=== PATIENT | male | born 1960 | race African-American/Black ===

== ENCOUNTER 2019-08-23 20:26 | Emergency (ER) | payer SELFPAY ==
[~2019-08-23] VITALS: Ht 185.4 cm; Wt 113.4 kg
[2019-08-23 21:09] VITALS: BP 113/78
[2019-08-23 21:09] LABS: BASOPHILS # (AUTO) 0.1 /CMM (0.0-0.2); EOSINOPHILS % (AUTO) 1.8 % (0.0-6.0); HEMATOCRIT 45 % (39-51); HEMOGLOBIN 14.8 g/dL (13.5-17.5); LYMPHOCYTES # (AUTO) 2.1 /CMM (0.8-4.8); LYMPHOCYTES % (AUTO) 27.2 % (20.0-44.0); MEAN CORPUSCULAR HGB CONC 33 g/dl (31.0-36.0); MEAN CORPUSCULAR VOLUME 92 fL (80-96); MONOCYTES % (AUTO) 12.6 % (2.0-12.0); NEUTROPHILS # (AUTO) 4.4 /CMM (1.8-8.9); NEUTROPHILS % (AUTO) 57.4 % (43.0-81.0); PLATELET COUNT (AUTO) 213 /CMM (150-450); RED BLOOD CELL COUNT(AUTO) 4.93 MIL/uL (4.5-6.0); WHITE BLOOD COUNT (AUTO) 7.6 K/uL (4.3-11.0)
--- NOTE | 2019-08-23 21:10 | NUR ---
[facility]. TO ER BED 14. AAOX4 BUT DROWSY. NO RESP DISTRESS, BREATHING EVEN AND UNLABORED UPON PRESENTATION. PT FOUND UNCONSCIOUS, POSSIBLE FOR DRUG OVERDOSE. PT PT, HE SNORTED WHAT HE TAUGHT TO BE COCAINE AND NEST THING HE KNOWS IS HE IS BEING BROUGHT TO THE HOSPITAL. PT WAS GIVEN NARCAN 4MG AND AWAKEN THE PT. MD WAS AT BEDSIDE FOR EVAL. IV LINE OBTAINED ON R AC 18G. BLOOD DRAWN AND GIVEN TO NEUROLOGIST AT BEDSIDE. WILL CONTINUE TO MONITOR PT.
[2019-08-23 21:16] LABS: CALCIUM, SERUM 8.8 mg/dL (8.5-10.1); CREATININE 1.7 mg/dL (0.6-1.3); POTASSIUM 4.1 mmol/L (3.5-5.1)
--- NOTE | 2019-08-23 22:08 | NUR ---
PT SLEEPING IN [place]. NO SIGNS OF DISTRESS NOTED. PT VITAL SIGNS STABLE. BREATHS EQUAL AND UNLABORED. WILL CONT TO MONITOR PT.
--- NOTE | 2019-08-24 04:25 | NUR ---
PT IN BED SLEEPING. NO DISTRESS NOTED
--- NOTE | 2019-08-24 05:55 | NUR ---
IV removed. Catheter intact and site benign. Pressure and 4x4 applied to site. No bleeding noted.
--- NOTE | 2019-08-24 06:02 | NUR ---
PT OK TO BE DISCHARGED PER DR CESPEDES. Patient is awake and alert to self, day, and place.Patient given written and verbal discharge instructions. Patient verbalizes understanding of instructions. Patient is ambulatory with steady gait. Refuses offer of [facility] placement. Patient given list of available shelters in surrounding area.
== END 2019-08-24 06:03 | disposition home or self-care (01) ==
LOC: ER 20:29
DX: T40.691A Poisoning by other narcotics, accidental (unintentional), initial encounter (principal); I10 Essential (primary) hypertension; E78.00 Pure hypercholesterolemia, unspecified; F10.10 Alcohol abuse, uncomplicated; F17.200 Nicotine dependence, unspecified, uncomplicated; Y90.9 Presence of alcohol in blood, level not specified; Y92.89 Other specified places as the place of occurrence of the external cause
CPT/HCPCS: 36415; 80048-TC; 85025-TC

== ENCOUNTER 2019-08-24 09:05 | Emergency (ER) | payer SELFPAY ==
[~2019-08-24] VITALS: Ht 188 cm; Wt 117.9 kg
--- NOTE | 2019-08-24 09:15 | NUR ---
PT BIB SELD C/O ABDOMINAL PAIN STARTED LAST NIGHT, PT IS AAOX4, NOT IN RESPIRATORY DISTRESS, HOOKED TO DIRECTOR OF SCIENCE, KEPT RESTED AND COMFORTABLE, WILL CONTINUE TO MONITOR.
[2019-08-24] MEDS ORDERED: IV NS 0.9% 1,000 ML BAG IV ONE (09:30)
--- NOTE | 2019-08-24 09:30 | NUR ---
SEEN AND EXAMINED BY DR. KIM.
--- NOTE | 2019-08-24 09:40 | NUR ---
URINE SPECIMEN COLLECTED AND SENT TO LAB.
--- NOTE | 2019-08-24 09:45 | NUR ---
IV LINE ESTABLISHED, BLOOD DRAWN AND SENT TO LAB.
[2019-08-24 09:51] LABS: APPEARANCE,URINE Clear (CLEAR); BILIRUBIN,URINE Negative (NEGATIVE); BLOOD, URINE Negative Ery/uL (NEGATIVE); COLOR,URINE Yellow (YELLOW); KETONES,URINE Negative (NEGATIVE); LEUKOCYTE ESTERASE ,URINE Negative (NEGATIVE); NITRITE, URINE Negative (NEGATIVE); PH,URINE 5.5 (5.0-8.0); PROTEIN,URINE Trace mg/dl (NEGATIVE); UGLUCOSE Negative (NEGATIVE); UROBILINOGEN,URINE 0.2 EU/dL (0.2)
[2019-08-24 09:56] LABS: BASOPHILS # (AUTO) 0.1 /CMM (0.0-0.2); BASOPHILS % (AUTO) 0.6 % (0.0-2.0); EOSINOPHILS % (AUTO) 1.1 % (0.0-6.0); HEMATOCRIT 47 % (39-51); HEMOGLOBIN 15.7 g/dL (13.5-17.5); LYMPHOCYTES # (AUTO) 2.3 /CMM (0.8-4.8); LYMPHOCYTES % (AUTO) 24.7 % (20.0-44.0); MEAN CORPUSCULAR HGB CONC 33 g/dl (31.0-36.0); MEAN CORPUSCULAR VOLUME 92 fL (80-96); MONOCYTES # (AUTO) 1.2 /CMM (0.1-1.30); MONOCYTES % (AUTO) 12.9 % (2.0-12.0); NEUTROPHILS # (AUTO) 5.7 /CMM (1.8-8.9); NEUTROPHILS % (AUTO) 60.7 % (43.0-81.0); PLATELET COUNT (AUTO) 224 /CMM (150-450); RED BLOOD CELL COUNT(AUTO) 5.17 MIL/uL (4.5-6.0); WHITE BLOOD COUNT (AUTO) 9.3 K/uL (4.3-11.0)
[2019-08-24 10:00] LABS: CALCIUM, SERUM 9.2 mg/dL (8.5-10.1); CREATININE 1.3 mg/dL (0.6-1.3); POTASSIUM 4.6 mmol/L (3.5-5.1)
[2019-08-24 10:03] LABS: ALCOHOL, BLOOD < 3 mg/dL (0-0); SALICYLATE 3.5 mg/dL (2.8-20.0)
[2019-08-24 10:04] LABS: ACETAMINOPHEN 0 ug/ml (10-30)
[2019-08-24 10:05] LABS: BILIRUBIN,DIRECT 0.1 mg/dL (0.0-0.2); BILIRUBIN,TOTAL 0.3 mg/dL (0.2-1.0); TOTAL PROTEIN, SERUM 8.5 g/dL (6.4-8.2)
--- NOTE | 2019-08-24 11:22 | NUR ---
PT IS WHEELED TO CT SCAN VIA [facility].
[2019-08-24 12:29] VITALS: BP 128/84
--- NOTE | 2019-08-24 12:29 | NUR ---
IV removed. Catheter intact and site benign. Pressure and 4x4 applied to site. No bleeding noted. Patient discharged to home in stable condition. Written and verbal after care instructions given. Patient verbalizes understanding of instruction.
== END 2019-08-24 12:30 | disposition home or self-care (01) ==
LOC: ER 09:05
DX: R10.9 Unspecified abdominal pain (principal); R11.0 Nausea; I10 Essential (primary) hypertension; F10.10 Alcohol abuse, uncomplicated; F17.200 Nicotine dependence, unspecified, uncomplicated; Y90.0 Blood alcohol level of less than 20 mg/100 ml
CPT/HCPCS: 36415; 74018; 74176; 80048; 80076; 80305; 80307; 80329; 81001; 83690; 85025; 99284; G0480; J7030; 81000-TC